=== PATIENT | male | born 1955 | race Hispanic/Latino ===

== ENCOUNTER 2018-10-23 21:22 | Emergency (ER) | payer MEDICARE ==
[2018-10-23] MEDS ORDERED: BABY ASPIRIN PO ONE (21:47)
--- NOTE | 2018-10-23 21:52 | Emergency Department Report ---
ED Chest Pain HPI - General Stated Complaint: CP Time Seen by Provider: 10/23/18 21:36 - History of Present Illness Initial Comments: Patient is 63 years old male with history of coronary artery disease status post stent one in 1998 and the last one was in 2006. Patient also had history of hypertension and diabetes. Patient presented to the ER complaining of chest tightness started this evening while he was working on his truck. Patient stated that pain radiated to his jaw and neck. Patient stated that his pain is much better now but he is not feeling well since then. Patient denied any fever or cough. No nausea or vomiting. MD Complaint: chest pain -: This evening Onset: during exertion Pain Location: left chest Severity scale (0 -10): 6 Quality: tightness Consistency: intermittent - Related Data Home Medications Medication Instructions Recorded Confirmed Last Taken Aspirin [Aspirin BABY CHEW TAB] 81 mg PO QDAY 10/23/18 10/23/18 Unknown Clopidogrel Bisulfate [Plavix] 75 mg PO QPM 10/23/18 10/23/18 Unknown Docusate Sodium [Colace] 200 mg PO TIDWM 10/23/18 10/23/18 Unknown Insulin Aspart Prot/Aspart(Nf) 80 units SQ TID 10/23/18 10/23/18 Unknown [Novolog Mix 70/30] Lansoprazole [Prevacid] 15 mg PO QDAY 10/23/18 10/23/18 Unknown Lisinopril [Prinivil] 10 mg PO QAM 10/23/18 10/23/18 Unknown Allergies Allergy/AdvReac Type Severity Reaction Status Date / Time Sulfa (Sulfonamide Allergy Unknown Verified 10/23/18 22:06 Antibiotics) Heart Score - HEART Score History: Moderately suspicious EKG: Non-specific Age: 45-65 Risk factors: > 3 risk factors or hx of atherosclerotic disease Troponin: < normal limit HEART Score: 5 - Critical Actions Critical Actions: 4-6 pts:12-16.6% risk of adverse cardiac event. Should be admitted ED Review of Systems ROS: Stated complaint: CP Other details as noted in HPI Comment: All other systems reviewed and negative Constitutional: denies: chills, fever Respiratory: SOB with exertion. denies: cough, orthopnea, shortness of breath, SOB at rest Cardiovascular: chest pain Gastrointestinal: denies: abdominal pain, nausea, vomiting, diarrhea, constipation, hematemesis, melena Neurological: denies: headache, weakness, numbness, paresthesias, confusion, abnormal gait, vertigo ED Past Medical Hx - Medications Home Medications: Home Medications Medication Instructions Recorded Confirmed Last Taken Type Aspirin [Aspirin BABY CHEW TAB] 81 mg PO QDAY 10/23/18 10/23/18 Unknown History Clopidogrel Bisulfate [Plavix] 75 mg PO QPM 10/23/18 10/23/18 Unknown History Docusate Sodium [Colace] 200 mg PO TIDWM 10/23/18 10/23/18 Unknown History Insulin Aspart Prot/Aspart(Nf) 80 units SQ TID 10/23/18 10/23/18 Unknown History [Novolog Mix 70/30] Lansoprazole [Prevacid] 15 mg PO QDAY 10/23/18 10/23/18 Unknown History Lisinopril [Prinivil] 10 mg PO QAM 10/23/18 10/23/18 Unknown History ED Physical Exam - General General appearance: alert, in no apparent distress - Head Head exam: Present: atraumatic, normocephalic, normal inspection - Eye Eye exam: Present: normal appearance - ENT ENT exam: Present: normal exam, normal orophraynx, mucous membranes moist - Neck Neck exam: Present: normal inspection, full ROM. Absent: tenderness, meningismus, lymphadenopathy, thyromegaly - Respiratory Respiratory exam: Present: normal lung sounds bilaterally. Absent: respiratory distress, wheezes, rales, rhonchi, stridor, chest wall tenderness, accessory muscle use, decreased breath sounds, prolonged expiratory - Cardiovascular Cardiovascular Exam: Present: regular rate, normal rhythm, normal heart sounds - GI/Abdominal GI/Abdominal exam: Present: soft, normal bowel sounds. Absent: distended, tenderness, guarding, rebound, rigid, organomegaly, mass, bruit, pulsatile mass - Extremities Exam Extremities exam: Present: normal inspection, full ROM, normal capillary refill. Absent: pedal edema, calf tenderness - Back Exam Back exam: Present: normal inspection, full ROM. Absent: tenderness, CVA te nderness (R), CVA tenderness (L), muscle spasm, paraspinal tenderness, vertebral tenderness - Neurological Exam Neurological exam: Present: alert, oriented X3, CN II-XII intact, normal gait, reflexes normal - Psychiatric Psychiatric exam: Present: normal mood - Skin Skin exam: Present: warm, intact, normal color ED Course Vital Signs 10/23/18 10/23/18 10/23/18 21:30 21:46 22:27 Temperature 97.9 F Pulse Rate 106 H 97 H Respiratory 23 21 18 Rate Blood Pressure 131/87 175/73 O2 Sat by Pulse 96 94 95 Oximetry 10/23/18 10/23/18 10/24/18 22:30 23:00 00:00 Temperature Pulse Rate 93 H 91 H 97 H Respiratory 14 19 15 Rate Blood Pressure 177/86 125/57 168/72 O2 Sat by Pulse 95 91 97 Oximetry 10/24/18 01:00 Temperature Pulse Rate 90 Respiratory 13 Rate Blood Pressure 143/63 O2 Sat by Pulse 96 Oximetry - Consultations Consultation #1: 10/24/18 01:11 I discussed the patient is Dr. Douglas from [facility]. YIFAN score - Yifan Score Age > 65: (0) No Aspirin use within the Past 7 Days: (1) Yes 3 or more CAD Risk Factors: (1) Yes 2 or more Angina events in past 24 hrs: (1) Yes Known CAD with more than 50% Stenosis: (1) Yes Elevated Cardiac Markers: (0) No ST Deviation Greater than 0.5mm: (0) No YIFAN Score: 4 ED Medical Decision Making - Lab Data Result diagrams: 10/23/18 21:53 10/23/18 21:53 - EKG Data -: EKG Interpreted by Ar EKG shows normal: sinus rhythm Rate: normal - EKG Data Interpretation: no acute changes - Radiology Data Radiology results: report reviewed Referring Physician: LIBRA KIRBY Patient Name: KOREY FOSTER Date of : 1955 Sex: Male Report Date: 2018-10-23 Report Status: Finalized Findings [facility] [address] [place] [address] Cat Scan Report Signed Patient: KOREY FOSTER MR#: [id number] : 1955 Acct:[id number] Age/Sex: 63 / M ADM Date: 10/23/18 Loc: ED Attending Dr: Ordering Physician: LIBAR KIRBY Date of Service: 10/23/18 Procedure(s): CT angio chest Accession Number(s): [id number] cc: LIBRA KIRBY PROCEDURE: CT ANGIO CHEST TECHNIQUE: A CT angiogram was performed following the intravenous injection of iodinated contrast. Rotational, sagittal, and coronal MIP reconstructions were reviewed. HISTORY: CHEST PAIN WITH elevated d-dimer COMPARISONS: Chest x-ray 10/23/2018 FINDINGS: The heart size is normal. There is no evidence of pericardial effusion. The thoracic aorta is normal in caliber. There is no evidence of pulmonary embolus or vascular congestion. The lungs reveal emphysematous changes in the apices. In the anterior segment of the right upper lobe there is a noncalcified ovoid 8 mm nodule. No additional suspicious nodules are identified. Pleural fluid is not seen. In the upper abdomen the adrenal glands appear normal. The skeletal structures do not show any acute changes. At the thoracic inlet the thyroid gland appears normal. IMPRESSION: No evidence of pulmonary embolus, aortic dissection, or vascular congestion. Emphysematous changes in both lung apices. No acute infiltrates or effusions. 8 mm low-density noncalcified nodule in the right upper lobe. If previous studies are available they should be submitted for comparison. Otherwise repeat imaging in 3-6 months is recommended to confirm stability.. This document is electronically signed by Neymar Fernandez MD., October 24 2018 01:26:24 AM ET Transcribed By: RB Dictated By: NEYMAR FERNNADEZ MD Electronically Authenticated By: NEYMAR FERNANDEZ MD Signed Date/Time: 10/24/18 0128 DD/ 2256 TD/TT: 10/24/18 0019 - Medical Decision Making Patient is 63 years old male with history of coronary artery disease status post stent one in 1998 and the last one was in 2006. Patient also had history of hypertension and diabetes. Patient presented to the ER complaining of chest tightness started this evening while he was working on his truck. Patient stated that pain radiated to his jaw and neck. Patient stated that his pain is much better now but he is not feeling well since then. Patient denied any fever or cough. No nausea or vomiting. EKG was no evidence of ST elevation. 2 set of troponin is negative so far. CTA chest is negative. I discussed the patient is Dr. Douglas from [facility] who stated that he arranged for the transfer to [facility], accepting physician is Dr. Ortiz. Dr. Douglas to stated that he will arrange for the transfer. Critical Care Time: Yes Critical care time in (mins) excluding proc time.: 30 Critical care attestation.: If time is entered above; I have spent that time in minutes in the direct care of this critically ill patient, excluding procedure time. ED Disposition Clinical Impression: Unstable angina Disposition: DC/TX-70 ANOTHER TYPE HLTHCARE Is pt being admited?: No Condition: Stable Instructions: Angina (ED) Referrals: PRIMARY CARE, [Primary Care Provider] - 3-5 Days
[2018-10-23 22:10] LABS: Basophils % (Auto) 0.2 % (0.0-1.8); Eosinophils # (Auto) 0.2 K/mm3 (0.0-0.4); Eosinophils % (Auto) 3.3 % (0.0-4.3); Hemoglobin 12.6 gm/dl (11.8-15.2); Lymphocytes % (Auto) 17.8 % (13.4-35.0); Mean Corpuscular HGB Conc 33 % (32-34); Mean Corpuscular Volume 81 fl (84-94); Monocytes # (Auto) 0.6 K/mm3 (0.0-0.8); Monocytes % (Auto) 9.8 % (0.0-7.3); Platelet Count 132 K/mm3 (140-440); Red Blood Count 4.69 M/mm3 (3.65-5.03); Red Cell Distribution Width 15.8 % (13.2-15.2)
[2018-10-23 22:23] LABS: INR 0.95 (0.87-1.13); Partial Thromboplastin Time 26.4 Sec. (24.2-36.6)
[2018-10-23 22:29] LABS: BUN/Creatinine Ratio 10; Blood Urea Nitrogen 7 mg/dL (9-20); Calcium 8.9 mg/dL (8.4-10.2); Hemolysis Index 20
--- NOTE | 2018-10-23 23:27 | XRay Report ---
PROCEDURE: Chest. TECHNIQUE: PA and lateral views. HISTORY: Chest pain. COMPARISONS: None. FINDINGS: The heart size is normal. There is mild tortuosity of the thoracic aorta. The lungs are clear except for previous granulomatous disease. There may be mild hyperinflation of the lungs. There are no pleur al effusions. The soft tissues and regional skeleton are unremarkable. IMPRESSION: No evidence of acute disease. This document is electronically signed by Larry Santamaria MD., October 23 2018 11:25:52 PM ET
--- NOTE | 2018-10-24 01:28 | Cat Scan Report ---
PROCEDURE: CT ANGIO CHEST TECHNIQUE: A CT angiogram was performed following the intravenous injection of iodinated contrast. R otational, sagittal, and coronal MIP reconstructions were reviewed. HISTORY: CHEST PAIN WITH elevated d-dimer COMPARISONS: Chest x-ray 10/23/2018 FINDINGS: The heart size is normal. There is no evidence of pericardial effusion. The thoracic aorta is normal in caliber. There is no evidence of pulmonary embolus or vascular congestion. The lungs reveal emphys ematous changes in the apices. In the anterior segment of the right upper lobe there is a noncalcifie d ovoid 8 mm nodule. No additional suspicious nodules are identified. Pleural fluid is not seen. In t he upper abdomen the adrenal glands appear normal. The skeletal structures do not show any acute monsivais ges. At the thoracic inlet the thyroid gland appears normal. IMPRESSION: No evidence of pulmonary embolus, aortic dissection, or vascular congestion. Emphysematous changes in both lung apices. No acute infiltrates or effusions. 8 mm low-density noncalcified nodule in the right upper lobe. If previous studies are available they should be submitted for comparison. Otherwise repeat imaging in 3-6 months is recommended to confirm stability.. This document is electronically signed by Qasim Fernandez MD., October 24 2018 01:26:24 AM ET
[2018-10-24 19:47] VITALS: BP 143/63
== END 2018-10-24 02:58 | disposition other institution (70) ==
LOC: ED 21:22
DX: I20.0 Unstable angina (principal); I10 Essential (primary) hypertension; E11.9 Type 2 diabetes mellitus without complications; Z88.2 Allergy status to sulfonamides; Z79.82 Long term (current) use of aspirin; Z79.4 Long term (current) use of insulin
CPT/HCPCS: 36415; 71046; 71275; 80048; 84484; 85025; 85379; 85610; 85730; 93005; 93010; 99285; Q9967

== ENCOUNTER 2021-04-10 03:52 | Inpatient (IN) | payer MEDICARE ==
[2021-04-10] MEDS ORDERED: dilTIAZem 25 MG/5 ML INJ ONE (04:05)
[2021-04-10] MEDS ORDERED: dilTIAZem 25 MG/5 ML INJ IV ONE (04:06)
--- NOTE | 2021-04-10 04:10 | Emergency Department Report ---
ED Chest Pain HPI - General Chief Complaint: Chest Pain Stated Complaint: CHEST PAIN PUI?: Yes Time Seen by Provider: 04/10/21 04:05 Source: patient, EMS Mode of arrival: Stretcher Limitations: No Limitations - History of Present Illness Initial Comments: Patient is a 65-year-old male who presents emergency room for chest pain. Patient states chest pain started approximately an hour ago. Patient states that his chest pain has improved. Patient states his chest pain was the worst she is ever felt. Patient states it was 10 of 10. Patient states is a crushing sharp chest pain in the center of his chest. Patient complains of shortness of breath. Patient states shortness of breath has resolved. Patient states his chest pain now is a 4 out of 10. Pain feels like more like a pressure. Patient brought in by EMS. He reports he can EMS. EMS states the patient was found to be tachycardic 182 on EKG. Patient was given adenosine the patient is now 120. EKGs from EMS were reviewed. Patient denies recent travel. Patient denies recent international travel. Patient denies exposure to the novel coronavirus. Patient denies sick contacts. Patient denies fever and chills. Patient denies cough. Patient denies d iarrhea. Patient denies coming in contact with anybody with symptoms of the novel coronavirus. MD Complaint: chest pain -: Sudden Pain Location: substernal Pain Radiation: none Severity scale (0 -10): 4 Quality: sharp Consistency: constant Improves With: rest Worsens With: exertion re: dyspnea. denies: nausea, vomting, diaphoresis Other Symptoms: palpitations. denies: cough, fever, syncope, rash, acid taste in mouth, leg swelling, burping Treatments Prior to Arrival: aspirin, other Aspirin use within the Past 7 Days: (1) Yes - Related Data On Oral Contraceptives: No Home Medications Medication Instructions Recorded Confirmed Last Taken Aspirin [Aspirin BABY CHEW TAB] 81 mg PO QDAY 10/23/18 10/23/18 Unknown Clopidogrel Bisulfate [Plavix] 75 mg PO QPM 10/23/18 10/23/18 Unknown Docusate Sodium [Colace] 200 mg PO TIDWM 10/23/18 10/23/18 Unknown Insulin Aspart Prot/Aspart(Nf) 80 units SQ TID 10/23/18 10/23/18 Unknown [Novolog Mix 70/30] Lansoprazole [Prevacid] 15 mg PO QDAY 10/23/18 10/23/18 Unknown lisinopriL [Prinivil] 10 mg PO QAM 10/23/18 10/23/18 Unknown Allergies Allergy/AdvReac Type Severity Reaction Status Date / Time Sulfa (Sulfonamide Allergy Unknown Verified 04/10/21 04:15 Antibiotics) Heart Score - HEART Score History: Highly suspicious EKG: Non-specific Age: > 65 Risk factors: > 3 risk factors or hx of atherosclerotic disease Troponin: < normal limit HEART Score: 7 - EKG Read Time Time EKG Completed: 04:01 EKG Read Time: 04:02 ED Review of Systems ROS: Stated complaint: CHEST PAIN Other details as noted in HPI Constitutional: denies: chills, fever Eyes: denies: eye pain, eye discharge, vision change ENT: denies: ear pain, throat pain Respiratory: shortness of breath. denies: cough, wheezing Cardiovascular: as per HPI, chest pain, palpitations Endocrine: no symptoms reported Gastrointestinal: denies: abdominal pain, nausea, diarrhea Genitourinary: denies: urgency, dysuria Musculoskeletal: denies: back pain, joint swelling, arthralgia Skin: denies: rash, lesions Neurological: denies: headache, weakness, paresthesias Psychiatric: denies: anxiety, depression Hematological/Lymphatic: denies: easy bleeding, easy bruising ED Past Medical Hx - Past Medical History Previous Medical History?: Yes Hx Hypertension: Yes Hx Heart Attack/AMI: Yes (2 stent) Hx Asthma: Yes Hx COPD: Yes Additional medical history: gastric ulcer - Surgical History Past Surgical History?: Yes Hx Cholecystectomy: Yes Additional Surgical History: hernia repair - Family History Family history: no significant - Social History Smoking Status: Never Smoker Substance Use Type: None - Medications Home Medications: Home Medications Medication Instructions Recorded Confirmed Last Taken Type Aspirin [Aspirin BABY CHEW TAB] 81 mg PO QDAY 10/23/18 10/23/18 Unknown History Clopidogrel Bisulfate [Plavix] 75 mg PO QPM 10/23/18 10/23/18 Unknown History Docusate Sodium [Colace] 200 mg PO TIDWM 10/23/18 10/23/18 Unknown History Insulin Aspart Prot/Aspart(Nf) 80 units SQ TID 04/15/19 04/15/19 Unknown History [Novolog Mix 70/30] Lansoprazole [Prevacid] 15 mg PO QDAY 10/23/18 10/23/18 Unknown History lisinopriL [Prinivil] 10 mg PO QAM 10/23/18 10/23/18 Unknown History ED Physical Exam - General Limitations: No Limitations General appearance: alert, in no apparent distress - Head Head exam: Present: atraumatic, normocephalic - Eye Eye exam: Present: normal appearance - ENT ENT exam: Present: mucous membranes moist - Neck Neck exam: Present: normal inspection - Respiratory Respiratory exam: Present: normal lung sounds bilaterally. Absent: respiratory distress - Cardiovascular Cardiovascular Exam: Present: regular rate, normal rhythm. Absent: systolic murmur, diastolic murmur, rubs, gallop - GI/Abdominal GI/Abdominal exam: Present: soft, normal bowel sounds - Rectal Rectal exam: Present: deferred - Extremities Exam Extremities exam: Present: normal inspection - Back Exam Back exam: Present: normal inspection - Neurological Exam Neurological exam: Present: alert, oriented X3 - Psychiatric Psychiatric exam: Present: normal affect, normal mood - Skin Skin exam: Present: warm, dry, intact, normal color. Absent: rash ED Course Vital Signs 04/10/21 04/10/21 04/10/21 04:03 04:10 04:27 Temperature 97.8 F Pulse Rate 116 H 132 H 115 H Respiratory 15 18 Rate Blood Pressure 182/89 167/86 O2 Sat by Pulse 94 96 Oximetry 04/10/21 04/10/21 04/10/21 04:30 04:46 05:00 Temperature Pulse Rate 112 H 109 H 109 H Respiratory 12 12 12 Rate Blood Pressure 155/71 159/71 137/67 O2 Sat by Pulse 95 96 95 Oximetry - Reevaluation(s) Reevaluation #1: I observed an irregular rhythm on the EKG and the patient will be given Cardizem push and placed on a Cardizem drip. I personally reviewed the rhythm strip for greater than 10 seconds. 04/10/21 04:10 Reevaluation #2: Patient states feeling much better. Patient states his pain has now resolved. 04/10/21 04:45 Reevaluation #3: Patient states his pain is completely resolved at this time. Patient states he is feeling much better. Patient's heart rate is 100. Patient is currently on Cardizem drip. 04/10/21 05:25 Reevaluation #4: I discussed all results with patient. I discussed plan of care with patient. Patient agrees with plan of care and admission. Patient to be admitted to the hospitalist service. 04/10/21 06:01 - Consultations Consultation #1: I discussed the case with Dr. Leggett, accounts receivable supervisor. Dr. Leggett states this is not a STEMI and the patient can be managed medically. 04/10/21 04:17 Consultation #2: Patient has [facility] insurance. [facility] on-call physician was paged. 04/10/21 05:25 I discussed the case with Dr. Pool with [facility] and recommends admission here. 04/10/21 06:00 Consultation #3: Hospitalist consulted for admission. Hospitalist to admit patient. 04/10/21 06:01 MARITA score - Marita Score Age > 65: (0) No Aspirin use within the Past 7 Days: (1) Yes 3 or more CAD Risk Factors: (1) Yes 2 or more Angina events in past 24 hrs: (1) Yes Known CAD with more than 50% Stenosis: (1) Yes Elevated Cardiac Markers: (0) No ST Deviation Greater than 0.5mm: (0) No MARITA Score: 4 ED Medical Decision Making - Lab Data Result diagrams: 04/10/21 04:22 04/10/21 04:22 - EKG Data -: EKG Interpreted by Me EKG shows normal: sinus rhythm, axis, intervals, ST-T waves Rate: tachycardia - Radiology Data Radiology results: report reviewed, image reviewed interpreted by me: Chest x-ray: No pneumonia, no pneumothorax, no foreign body, no osseous findings, no acute findings CHEST 1 VIEW INDICATION / CLINICAL INFORMATION: Chest Pain STUDY TIME: 409 COMPARISON: 10/23/2018 FINDINGS: SUPPORT DEVICES: None HEART / MEDIASTINUM: No significant abnormality. LUNGS / PLEURA: Detail in the bases is reduced due to the patient's size. No definite acute infiltrate is seen. No pneumothorax. ADDITIONAL FINDINGS: No significant additional findings. - Medical Decision Making Patient is a 65-year-old male who presents emergency room with complaints of chest pain. Patient brought in by EMS. Report received from EMS on arrival. EMS found the patient to be in A. fib RVR with a heart rate of 182 and irregular. Patient was given adenosine and his heart rate improved. Patient was found to have an irregular rhythm and rate when he arrived patient was given Cardizem and placed on Cardizem. Patient had an EKG which showed a right bundle branch block with abnormal STs. I discussed the EKG with our accounts receivable supervisor and he stated it was not a STEMI. Patient's rhythm and heart rate improved with Cardizem. Patient had labs done which were essentially unremarkable. Patient's troponin was negative. Patient's chest x- ray was negative for acute findings. I personally reviewed the rhythm strip and chest x-ray and EKG. Patient is a [facility] patient and the [facility] was contacted and she wants the patient be admitted here due to the fact he is uninsured. Patient admitted to the hospital service for further evaluation treatment and into the ICU. Critical care time documented due to the multiple reassessments, prolonged time at the bedside, interpretation of diagnostics and labs. - Differential Diagnosis ACS, A. fib RVR, chest pain, shortness of breath, abnormal EKG Critical Care Time: Yes Critical care time in (mins) excluding proc time.: 35 Critical care attestation.: If time is entered above; I have spent that time in minutes in the direct care of this critically ill patient, excluding procedure time. Critical Care Time: 35 minutes ED Disposition Clinical Impression: Atrial fibrillation with RVR, Abnormal EKG, Shortness of breath Chest pain Qualifiers: Chest pain type: unspecified Qualified Code(s): R07.9 - Chest pain, unspecified Disposition: ADMITTED INPATIENT Is pt being admited?: Yes Does the pt Need Aspirin: No Condition: Critical Time of Disposition: 06:18
--- NOTE | 2021-04-10 04:40 | XRay Report ---
CHEST 1 VIEW INDICATION / CLINICAL INFORMATION: Chest Pain STUDY TIME: 409 COMPARISON: 10/23/2018 FINDINGS: SUPPORT DEVICES: None HEART / MEDIASTINUM: No significant abnormality. LUNGS / PLEURA: Detail in the bases is reduced due to the patient's size. No definite acute infiltrat e is seen. No pneumothorax. ADDITIONAL FINDINGS: No significant additional findings. Signer Name: Rachid Erickson MD Signed: 04/10/2021 4:36 AM Workstation Name: [id number]
[2021-04-10 04:45] LABS: Basophils % (Auto) 0.4 % (0.0-1.8); Eosinophils # (Auto) 0.1 K/mm3 (0.0-0.4); Eosinophils % (Auto) 4.3 % (0.0-4.3); Hematocrit 33.6 % (35.5-45.6); Hemoglobin 10.8 gm/dl (11.8-15.2); Lymphocytes # (Auto) 0.7 K/mm3 (1.2-5.4); Lymphocytes % (Auto) 19.9 % (13.4-35.0); Mean Corpuscular HGB Conc 32 % (32-34); Mean Corpuscular Volume 72 fl (84-94); Monocytes # (Auto) 0.4 K/mm3 (0.0-0.8); Monocytes % (Auto) 11.3 % (0.0-7.3); Platelet Count 132 K/mm3 (140-440); Red Blood Count 4.65 M/mm3 (3.65-5.03); Red Cell Distribution Width 17.7 % (13.2-15.2)
[2021-04-10 04:55] LABS: INR 1.02 (0.87-1.13)
[2021-04-10 04:56] LABS: Partial Thromboplastin Time 26.4 Sec. (24.2-36.6)
[2021-04-10] MEDS ORDERED: dilTIAZem/D5W 100 MG/100 ML BAG IV SCH (05:00)
[2021-04-10 05:06] LABS: Alanine Aminotransferase 19 units/L (7-56); Blood Urea Nitrogen 9 mg/dL (9-20); Calcium 9.2 mg/dL (8.4-10.2); Hemolysis Index 38
[2021-04-10 05:19] LABS: BUN/Creatinine Ratio 13
--- NOTE | 2021-04-10 08:27 | History and Physical Report ---
History of Present Illness Date of examination: 04/10/21 Chief complaint: Chest pain and palpitation History of present illness: 65-year-old male with significant past medical history of GERD, diabetes mellitus type 2 and hypertension presented through the emergency room with complaints of chest pain that began approximately 1 hour prior to admission. The patient described the pain as a crushing sharp chest pain of a pressure consistency in the center of his chest. Patient also reported associated shortness of breath and palpitations last night. Patient denied any nausea vomiting. No cough or cold-like symptoms. No fever chills. Patient denies any history of atrial fibrillation. Patient also reported an additional history of recent left patella fracture approximately 4 weeks ago. Patient noted left calf pain a couple of weeks ago associated with that fracture. Patient also reports some immobility during that time. Patient denies any hemoptysis. Past History Past Medical History: diabetes, GERD, hypertension Past Surgical History: No surgical history Social history: no significant social history Family history: no significant family history Medications and Allergies Allergies Allergy/AdvReac Type Severity Reaction Status Date / Time Sulfa (Sulfonamide Allergy Unknown Verified 04/10/21 04:15 Antibiotics) Home Medications Medication Instructions Recorded Confirmed Last Taken Type Aspirin [Aspirin BABY CHEW TAB] 81 mg PO QDAY 10/23/18 10/23/18 Unknown History Clopidogrel Bisulfate [Plavix] 75 mg PO QPM 10/23/18 10/23/18 Unknown History Docusate Sodium [Colace] 200 mg PO TIDWM 10/23/18 10/23/18 Unknown History Insulin Aspart Prot/Aspart(Nf) 80 units SQ TID 10/23/18 10/23/18 Unknown History [Novolog Mix 70/30] Lansoprazole [Prevacid] 15 mg PO QDAY 10/23/18 10/23/18 Unknown History lisinopriL [Prinivil] 10 mg PO QAM 10/23/18 10/23/18 Unknown History Active Meds: Active Medications Diltiazem HCl (Cardizem/D5w 100mg/100ml) 100 mg in 100 mls @ 5 mls/hr IV TITR JOELLE; Protocol Last Admin: 04/10/21 05:43 Dose: 5 mg/hr, 5 mls/hr Documented by: Review of Systems All systems: negative Exam - Constitutional Vitals: Temp Pulse Resp BP Pulse Ox 97.8 F 109 H 12 137/67 95 04/10/21 04:03 04/10/21 05:00 04/10/21 05:00 04/10/21 05:00 04/10/21 05:00 General appearance: Present: no acute distress, well-nourished - EENT Eyes: Present: PERRL ENT: hearing intact, clear oral mucosa - Neck Neck: Present: supple, normal ROM - Respiratory Respiratory effort: normal Respiratory: bilateral: CTA - Cardiovascular Heart Sounds: Present: S1 & S2. Absent: rub, click - Extremities Extremities: pulses symmetrical, No edema Peripheral Pulses: within normal limits - Abdominal General gastrointestinal: Present: soft, non-tender, non-distended, normal bowel sounds Male genitourinary: Present: normal - Integumentary Integumentary: Present: clear, warm, dry - Musculoskeletal Musculoskeletal: gait normal, strength equal bilaterally - Psychiatric Psychiatric: appropriate mood/affect, intact judgment & insight - Neurologic Neurologic: CNII-XII intact, moves all extremities HEART Score - HEART Score EKG: Non-specific Age: > 65 Risk factors: > 3 risk factors or hx of atherosclerotic disease Troponin: Troponin T < 0.010 ng/mL (0.00-0.029) 04/10/21 04:22 Troponin: < normal limit Results - Labs CBC & Chem 7: 04/10/21 04:22 04/10/21 04:22 Labs: Laboratory Last Values WBC 3.4 K/mm3 (4.5-11.0) L 04/10/21 04:22 RBC 4.65 M/mm3 (3.65-5.03) 04/10/21 04:22 Hgb 10.8 gm/dl (11.8-15.2) L 04/10/21 04:22 Hct 33.6 % (35.5-45.6) L 04/10/21 04:22 MCV 72 fl (84-94) L 04/10/21 04:22 MCH 23 pg (28-32) L 04/10/21 04:22 MCHC 32 % (32-34) 04/10/21 04:22 RDW 17.7 % (13.2-15.2) H 04/10/21 04:22 Plt Count 132 K/mm3 (140-440) L 04/10/21 04:22 Lymph % (Auto) 19.9 % (13.4-35.0) 04/10/21 04:22 [place] % (Auto) 11.3 % (0.0-7.3) H 04/10/21 04:22 Eos % (Auto) 4.3 % (0.0-4.3) 04/10/21 04:22 Baso % (Auto) 0.4 % (0.0-1.8) 04/10/21 04:22 Lymph # (Auto) 0.7 K/mm3 (1.2-5.4) L 04/10/21 04:22 [place] # (Auto) 0.4 K/mm3 (0.0-0.8) 04/10/21 04:22 Eos # (Auto) 0.1 K/mm3 (0.0-0.4) 04/10/21 04:22 Baso # (Auto) 0.0 K/mm3 (0.0-0.1) 04/10/21 04:22 Seg Neutrophils % 64.1 % (40.0-70.0) 04/10/21 04:22 Seg Neutrophils # 2.2 K/mm3 (1.8-7.7) 04/10/21 04:22 PT 13.9 Sec. (12.2-14.9) 04/10/21 04:22 INR 1.02 (0.87-1.13) 04/10/21 04:22 APTT 26.4 Sec. (24.2-36.6) 04/10/21 04:22 Sodium 135 mmol/L (137-145) L 04/10/21 04:22 Potassium 4.3 mmol/L (3.6-5.0) 04/10/21 04:22 Chloride 97.7 mmol/L (98-107) L 04/10/21 04:22 Carbon Dioxide 26 mmol/L (22-30) 04/10/21 04:22 Anion Gap 16 mmol/L 04/10/21 04:22 BUN 9 mg/dL (9-20) 04/10/21 04:22 Creatinine 0.7 mg/dL (0.8-1.3) L 04/10/21 04:22 Estimated GFR > 60 ml/min 04/10/21 04:22 BUN/Creatinine Ratio 13 % 04/10/21 04:22 Glucose 187 mg/dL (75-100) H 04/10/21 04:22 Calcium 9.2 mg/dL (8.4-10.2) 04/10/21 04:22 Total Bilirubin 0.50 mg/dL (0.1-1.2) 04/10/21 04:22 AST 32 units/L (5-40) 04/10/21 04:22 ALT 19 units/L (7-56) 04/10/21 04:22 Alkaline Phosphatase 102 units/L (35-129) 04/10/21 04:22 Troponin T < 0.010 ng/mL (0.00-0.029) 04/10/21 04:22 Total Protein 7.1 g/dL (6.3-8.2) 04/10/21 04:22 Albumin 4.0 g/dL (3.9-5) 04/10/21 04:22 Albumin/Globulin Ratio 1.3 % 04/10/21 04:22 Assessment and Plan Assessment and plan: Atrial fibrillation with RVR. Chest pain. Diabetes mellitus type 2. Hypertension. Recent left patellar fracture. GERD 04/10/2021. Patient will be admitted to telemetry and monitor closely. We will follow-up serial EKG and cardiac isoenzymes. Cardiology will be consulted for further evaluation. Patient has converted back to normal sinus rhythm after administration of Cardizem. We will transition to p.o. Cardizem 30 mg twice daily and metoprolol 25 mg twice daily. Patient will undergo stress test. I discussed the case with Dr. Leggett. Resume home insulin regimen and SSRI/Accu- Cheks. Continue home medication of lisinopril. Patient will also have echocardiogram. We will initiate heparin per protocol but defer any other anticoagulation decisions to cardiology. Check left lower extremity Doppler to rule out DVT. Consider CTA of the chest. Check D-dimer.
[2021-04-10] MEDS ORDERED: ACETAMINOPHEN 325 MG TAB PO PRN ×2 (08:48→10:00)
[2021-04-10] MEDS ORDERED: DEXTROSE 50% IN WATER (25GM) 50 ML SYRINGE IV PRN (10:00)
[2021-04-10] MEDS ORDERED: METOPROLOL TARTRATE 25 MG TAB PO SCH ×2 (10:00→14:36)
[2021-04-10] MEDS ORDERED: HEPARIN 10,000 UNITS/10 ML VIAL IV PRN ×2 (10:00→13:00)
[2021-04-10] MEDS ORDERED: traMADol 50 MG TAB PO PRN (10:00)
[2021-04-10] MEDS ORDERED: dilTIAZem 30 MG TAB PO SCH (10:00)
[2021-04-10] MEDS ORDERED: HEPARIN 10,000 UNITS/10 ML VIAL IV SCH (10:00)
[2021-04-10] MEDS ORDERED: LANSOPRAZOLE 15 MG PO SCH (10:00)
[2021-04-10] MEDS ORDERED: ONDANSETRON 4 MG/2 ML INJ IV PRN (10:00)
[2021-04-10] MEDS: ASPIRIN 81 MG TAB CHEW PO SCH (10:07)
[2021-04-10] MEDS: MORPHINE 4 MG/1 ML INJ IV PRN ×3 (10:30→21:06)
[2021-04-10 10:51] LABS: Eosinophils # (Auto) 0.1 K/mm3 (0.0-0.4); Eosinophils % (Auto) 2.6 % (0.0-4.3); Monocytes # (Auto) 0.4 K/mm3 (0.0-0.8); Monocytes % (Auto) 11.5 % (0.0-7.3)
[2021-04-10] MEDS ORDERED: REGADENOSON 0.4 MG/5 ML INJ IV ONE ×2 (10:59→11:37)
[2021-04-10] MEDS ORDERED: DOCUSATE SODIUM 100 MG CAP PO PRN (11:00)
[2021-04-10 11:02] LABS: INR 1.03 (0.87-1.13)
[2021-04-10 11:03] LABS: Partial Thromboplastin Time 22.6 Sec. (24.2-36.6)
[2021-04-10 11:10] LABS: BUN/Creatinine Ratio 17; Blood Urea Nitrogen 10 mg/dL (9-20)
[2021-04-10 11:11] LABS: Calcium 8.9 mg/dL (8.4-10.2)
[2021-04-10 11:22] LABS: Chol/HDL Ratio 2.56 %
[2021-04-10 11:23] LABS: Platelet Count 151 K/mm3 (140-440)
[2021-04-10 11:25] LABS: Basophils % (Auto) 0.8 % (0.0-1.8); Hematocrit 34.3 % (35.5-45.6); Hemoglobin 10.9 gm/dl (11.8-15.2); Lymphocytes # (Auto) 0.7 K/mm3 (1.2-5.4); Lymphocytes % (Auto) 18.2 % (13.4-35.0); Mean Corpuscular HGB Conc 32 % (32-34); Mean Corpuscular Volume 72 fl (84-94); Red Blood Count 4.75 M/mm3 (3.65-5.03); Red Cell Distribution Width 17.3 % (13.2-15.2)
[2021-04-10] MEDS ORDERED: DOCUSATE SODIUM 100 MG CAP PO SCH (12:00)
[2021-04-10] MEDS: PANTOPRAZOLE 40 MG TAB PO SCH (13:11)
[2021-04-10] MEDS: LISINOPRIL 10 MG TAB PO SCH (13:11)
[2021-04-10] MEDS: INSULIN NPH/REGULAR 70/30 INJ SUB-Q SCH ×2 (13:29→18:23)
[2021-04-10] MEDS ORDERED: NON-FORMULARY EACH (Insulin Aspart Prot/Aspart(Nf) 100 UNITS/ML Units) SQ SCH (14:00)
[2021-04-10] MEDS: INSULIN REGULAR, HUMAN 100 UNITS/1 ML SUB-Q SCH ×4 (15:20→22:14)
[2021-04-10] MEDS: HEPARIN/ 0.45% NACL DRIP 25,000 UNIT/500 ML BAG IV SCH (15:55)
--- NOTE | 2021-04-10 17:37 | Consultation ---
History of Present Illness Consult date: 04/10/21 Requesting physician: REN SNOW History of present illness: Patient is a 65y/o male with a pmhx of HTN, CAD s/p PCI x 3, DM, GERD that came to the ED for a complaint of chest pain which occurred around 3AM this morning. Patient reports waking up from sleep due to a crushing pain in the center of his chest. He rates the pain 10/10 annd associates the pain with SOB, palpitations, diaphoresis, and a rapid heart rate. He denies nausea or vomiting. Per documentation in Ed patient was found to be in SVT and givne adenosine with conversion to NSR.At time of interview patien was then on a Cardizem gtt and reports chest pain was now 2/10. Patient troponins increased from negative to 0.16. Cardiology is consulted for chest pain. Patient is previously unknown to our practice and reports being a [facility] patient. Past History Past Medical History: diabetes, GERD, hypertension Past Surgical History: No surgical history Social history: no significant social history Family history: no significant family history Medications and Allergies Allergies Allergy/AdvReac Type Severity Reaction Status Date / Time Sulfa (Sulfonamide Allergy Unknown Verified 04/10/21 04:15 Antibiotics) Home Medications Medication Instructions Recorded Confirmed Last Taken Type Aspirin [Aspirin BABY CHEW TAB] 81 mg PO QDAY 10/23/18 10/23/18 Unknown History Clopidogrel Bisulfate [Plavix] 75 mg PO QPM 10/23/18 10/23/18 Unknown History Docusate Sodium [Colace] 200 mg PO TIDWM 10/23/18 10/23/18 Unknown History Insulin Aspart Prot/Aspart(Nf) 80 units SQ TID 10/23/18 10/23/18 Unknown History [Novolog Mix 70/30] Lansoprazole [Prevacid] 15 mg PO QDAY 10/23/18 10/23/18 Unknown History lisinopriL [Prinivil] 10 mg PO QAM 10/23/18 10/23/18 Unknown History Active Meds: Active Medications Acetaminophen (Acetaminophen 325 Mg Tab) 650 mg PO Q4H PRN PRN Reason: Pain MILD(1-3)/Fever >100.5/BYNUM Aspirin (Aspirin 81 Mg Tab Chew) 81 mg PO QDAY JOELLE Last Admin: 04/10/21 10:07 Dose: 81 mg Documented by: Clopidogrel Bisulfate (Clopidogrel 75 Mg Tab) 75 mg PO QPM [facility] Dextrose (Dextrose 50% In Water (25gm) 50 Ml Syringe) 50 ml IV Q30MIN PRN; Protocol PRN Reason: Hypoglycemia Docusate Sodium (Docusate Sodium 100 Mg Cap) 200 mg PO BID PRN PRN Reason: Constipation Heparin Sodium (Porcine) (Heparin 10,000 Units/10 Ml Vial) 5,000 unit IV Q6H PRN PRN Reason: Anti-Xa Assay < 0.1 units/ml Last Admin: 04/10/21 15:58 Dose: 5,000 unit Documented by: Heparin Sodium/Sodium Chloride (Heparin/ 0.45% Nacl-25,000 Unit/500 Ml) 25,000 unit in 500 mls @ 30 mls/hr IV TITR [facility]; Protocol Stop: 04/13/21 04:30 Last Admin: 04/10/21 15:55 Dose: 1,500 units/hr, 30 mls/hr Documented by: Sodium Chloride (Nacl 0.9% 500 Ml) 500 mls @ 50 mls/hr IV DIRECT OJELLE Stop: 04/11/21 03:59 Insulin Human Isoph/Insulin Regular (Insulin Nph/Regular 70/30 Inj) 60 unit SUB-Q 0800,1200,1700 [facility] Last Admin: 04/10/21 13:29 Dose: 60 unit Documented by: Insulin Human Regular (Insulin Regular, Human 100 Units/1 Ml) 0 units SUB-Q ACHS [facility]; Protocol Lisinopril (Lisinopril 10 Mg Tab) 10 mg PO QAM [facility] Last Admin: 04/10/21 13:11 Dose: 10 mg Documented by: Metoprolol Tartrate (Metoprolol Tartrate 25 Mg Tab) 50 mg PO BID [facility] Morphine Sulfate (Morphine 4 Mg/1 Ml Inj) 1 mg IV Q4H PRN PRN Reason: Chest Pain unrelieved by NTG Last Admin: 04/10/21 16:36 Dose: 1 mg Documented by: Ondansetron HCl (Ondansetron 4 Mg/2 Ml Inj) 4 mg IV Q8H PRN PRN Reason: Nausea And Vomiting Last Admin: 04/10/21 16:36 Dose: 4 mg Documented by: Pantoprazole Sodium (Pantoprazole 40 Mg Tab) 40 mg PO QDAC [facility] Last Admin: 04/10/21 13:11 Dose: 40 mg Documented by: Sodium Chloride (Sodium Chloride 0.9% 10 Ml Flush Syringe) 10 ml IV PRN PRN PRN Reason: LINE FLUSH Sodium Chloride (Sodium Chloride 0.9% 10 Ml Flush Syringe) 10 ml IV BID JOELLE Last Admin: 04/10/21 10:35 Dose: 10 ml Documented by: Sodium Chloride (Sodium Chloride 0.9% 10 Ml Flush Syringe) 10 ml IV PRN PRN PRN Reason: LINE FLUSH Tramadol HCl (Tramadol 50 Mg Tab) 50 mg PO Q6H PRN PRN Reason: Pain, Moderate (4-6) Last Admin: 04/10/21 16:37 Dose: 50 mg Documented by: Review of Systems Constitutional: sweats, no weight loss, no weight gain, no fever, no chills Ears, nose, mouth and throat: no nasal discharge, no sinus pressure, no sinus pain Cardiovascular: chest pain, palpitations, shortness of breath Respiratory: shortness of breath, no cough with sputum, no excessive sputum, no hemoptysis Gastrointestinal: no nausea, no vomiting, no diarrhea Musculoskeletal: no arm numbness/tingling, no low back pain, no shooting leg pain Integumentary: no rash, no pruritis, no redness Neurological: no paralysis, no weakness, no parathesias Psychiatric: no anxiety, no memory loss Endocrine: no cold intolerance, no heat intolerance Hematologic/Lymphatic: no easy bruising, no easy bleeding Physical Examination Vital Signs Temp Pulse Resp BP Pulse Ox 97.8 F 116 H 15 182/89 94 04/10/21 04:03 04/10/21 04:03 04/10/21 04:03 04/10/21 04:03 04/10/21 04:03 General appearance: no acute distress HEENT: Positive: PERRL Neck: Positive: trachea midline Cardiac: Positive: Reg Rate and Rhythm Lungs: Positive: Normal Exam Neuro: Positive: Grossly Intact Abdomen: Positive: Soft, Active Bowel Sounds Skin: Negative: Rash, Suspicious Lesions, Ulceration Extremities: Present: upper extr. pulses, lower extr. pulses. Absent: edema Results 04/10/21 10:11 04/10/21 10:11 Cardiac Enzymes 04/10/21 Range/Units 04:22 AST 32 (5-40) units/L Coagulation 04/10/21 04/10/21 Range/Units 04:22 10:11 PT 13.9 14.0 (12.2-14.9) Sec. INR 1.02 1.03 (0.87-1.13) APTT 26.4 22.6 L (24.2-36.6) Sec. Lipids 04/10/21 Range/Units 10:11 Triglycerides 75 (2-149) mg/dL Cholesterol 164 (50-199) mg/dL HDL Cholesterol 64 H (40-59) mg/dL Cholesterol/HDL Ratio 2.56 % CBC 04/10/21 04/10/21 Range/Units 04:22 10:11 WBC 3.4 L 3.8 L (4.5-11.0) K/mm3 RBC 4.65 4.75 (3.65-5.03) M/mm3 Hgb 10.8 L 10.9 L (11.8-15.2) gm/dl Hct 33.6 L 34.3 L (35.5-45.6) % Plt Count 132 L 151 (140-440) K/mm3 Lymph # (Auto) 0.7 L 0.7 L (1.2-5.4) K/mm3 [place] # (Auto) 0.4 0.4 (0.0-0.8) K/mm3 Eos # (Auto) 0.1 0.1 (0.0-0.4) K/mm3 Baso # (Auto) 0.0 0.0 (0.0-0.1) K/mm3 Comprehensive Metabolic Panel 04/10/21 04/10/21 Range/Units 04:22 10:11 Sodium 135 L 132 L (137-145) mmol/L Potassium 4.3 5.5 H D (3.6-5.0) mmol/L Chloride 97.7 L 98.4 (98-107) mmol/L Carbon Dioxide 26 24 (22-30) mmol/L BUN 9 10 (9-20) mg/dL Creatinine 0.7 L 0.6 L (0.8-1.3) mg/dL Glucose 187 H 255 H (75-100) mg/dL Calcium 9.2 8.9 (8.4-10.2) mg/dL AST 32 (5-40) units/L ALT 19 (7-56) units/L Alkaline Phosphatase 102 (35-129) units/L Total Protein 7.1 (6.3-8.2) g/dL Albumin 4.0 (3.9-5) g/dL - Imaging and Cardiology Echo: report reviewed Cardiac cath: report reviewed EKG: report reviewed EKG interpretations - Telemetry EKG Rhythm: Sinus Tachycardia - EKG Sinus rhythms and dysrhythmias: sinus tachycardia AV and intraventricular conduction: right bundle branch block Assessment and Plan NSTEMI HTN * EKG shows sinus tach 120 with RBB and no acute ischemic changes. Troponins trending up. Trend Rebecca * Echo EF 55-60%, Mild LVH, Mild diastolic dysfunction, left and right atrium are normal in size * Lexiscan MPI Stress test- Patient had abnormal stress test this AM * [facility] - LM widely patent, bifurcates into LAD and Circumflex LAD: mild disease, and givess of a larger 1st diagonal. The first diagonal is bigger than LAD and has a 70% stenosis. Circumflex: Proximal and mid is widely patent. There appears to be a stent in the mid Cx that is patent. Gives off very small 1st om that has diffuse disease. The Distal Cx gives off small OM and the distal system has diffuse 70% stenosis. The vessels here are small not ideal for revascularization. RCA: Dominant with moderate distal disease, otherwise patent. Plan: Patient for [facility] on Tuesday. Continue heparin gtt. Stopped diltiazem and initiate metoprolol 50mg PO BID Patient seen in conjunction with Dr. Antony who agrees with this plan of care. Will continue to follow - Patient Problems (1) NSTEMI (non-ST elevated myocardial infarction) Current Visit: Yes Status: Acute (2) Abnormal EKG Current Visit: No Status: Acute (3) Atrial fibrillation with RVR Current Visit: No Status: Acute (4) Chest pain Current Visit: No Status: Acute Qualifiers: Chest pain type: unspecified Qualified Code(s): R07.9 - Chest pain, unspecified (5) Shortness of breath Current Visit: No Status: Acute
--- NOTE | 2021-04-10 17:59 | Nuclear Medicine Report ---
APPROVED REPORT Exam: Nuclear Stress Test Indication: Chest pain Ht: 5 ft 10 in Wt: 320 lbs BSA: 2.55 m2 BMI: 45.91 Rhythm: NSR, RBBB Stress Test Details Stress Test: Pharmacologic stress testing performed using 0.4 mg of regadenoson per 5 mL given IV over 10 seconds. Reason for pharmacologic stress test: physical limitation. HR Resting HR: 82 bpm Max HR Achieved: 96 bpm Max Heart Rate (APMHR): 154 bpm Target HR (85% APMHR): 130 bpm % of APMHR: 62 Recovery HR: 86 bpm HR response to stress: Normal HR response to stress BP Resting BP: 145/60 mmHg Max BP: 158/65 mmHg Recovery BP: 148/61 mmHg BP response to stress: Normal blood pressure response to stress. ECG Resting ECG: Sinus Rhythm, RBBB Stress ECG: Sinus Rhythm, RBBB ST Change: None Arrhythmia: None Recovery ECG: Sinus Rhythm, RBBB Recovery ST Change: None Recovery Arrhythmia: None Clinical Reason for Termination: Completed protocol Stress Symptoms: None Stress ECG Conclusion No significant ST changes noted post vasodilation. NM EXAM: Myocardial Perfusion REST/STRESS Imaging Protocol: Rest Tc-99m/Stress Tc-99m 1 day Resting Data Rest SPECT myocardial perfusion imaging was performed in supine position 45 minutes following the intravenous injection of 10 mCi of Tc-99m Myoview. Time of rest injection: 1030 Pharmacologic Stress Pharmacologic stress test was performed by injecting Regadenoson 0.4 mg IV push followed by the intravenous injection of 28 mCi of Tc-99m Myoview. Time of stress injection: 1100 Gated Stress SPECT was performed 30 minutes after stress injection. Study Data TID = 1.25. Perfusion Wall Motion Normal LV function noted with LVEF of 59% post vasodilation. Nuclear Conclusion ECG Findings: negative for ischemia Clinical Findings: negative for ischemia Nuclear Findings: equivocal Exercise Capacity: not assessed Left Ventricular Function: normal Risk Study: moderate Abnormal study. Scintigraphic evidence for minimally reversible moderately severe inferior and inferolateral defect.Correlate clinically. Conclusion No significant ST changes noted post vasodilation.
[2021-04-10] MEDS ORDERED: SODIUM CHLORIDE 0.9% 500 ML 500 ML IV SCH (18:00)
[2021-04-10] MEDS: CLOPIDOGREL 75 MG TAB PO SCH (21:37)
[2021-04-11] MEDS: MORPHINE 4 MG/1 ML INJ IV PRN ×3 (04:04→18:48)
[2021-04-11] MEDS ORDERED: hydrALAZINE 20 MG/1 ML INJ IV ONE (05:15)
[2021-04-11] MEDS ORDERED: LISINOPRIL 10 MG TAB PO SCH (09:47)
[2021-04-11] MEDS ORDERED: METOPROLOL TARTRATE 25 MG TAB PO SCH (09:47)
[2021-04-11] MEDS: PANTOPRAZOLE 40 MG TAB PO SCH (09:56)
[2021-04-11] MEDS: LISINOPRIL 10 MG TAB PO SCH (09:56)
--- NOTE | 2021-04-11 09:56 | Progress Note ---
Assessment and Plan Assessment and plan: Atrial fibrillation with RVR. NSTEMI. Diabetes mellitus type 2. Hypertension. Recent left patellar fracture. GERD 04/10/2021. Patient will be admitted to telemetry and monitor closely. We will follow-up serial EKG and cardiac isoenzymes. Cardiology will be consulted for further evaluation. Patient has converted back to normal sinus rhythm after administration of Cardizem. We will transition to p.o. Cardizem 30 mg twice daily and metoprolol 25 mg twice daily. Patient will undergo stress test. I discussed the case with Dr. Leggett. Resume home insulin regimen and SSRI/Accu- Cheks. Continue home medication of lisinopril. Patient will also have echocardiogram. We will initiate heparin per protocol but defer any other anticoagulation decisions to cardiology. Check left lower extremity Doppler to rule out DVT. Consider CTA of the chest. Check D-dimer. 04/11/2021. Echocardiogram reveals left ventricular systolic function normal with mild concentric left ventricular hypertrophy and mild diastolic dysfunction. EF 55 to 60%. Cardiology reports NSTEMI with elevated troponin. Patient reportedly had abnormal stress test and is scheduled for cardiac catheterization on Tuesday. Continue heparin drip and metoprolol 50 mg twice daily. Cardiology following -[facility] - LM widely patent, bifurcates into LAD and Circumflex LAD: mild disease, and givess of a larger 1st diagonal. The first diagonal is bigger than LAD and has a 70% stenosis. Circumflex: Proximal and mid is widely patent. There appears to be a stent in the mid Cx that is patent. Gives off very small 1st om that has diffuse disease. The Distal Cx gives off small OM and the distal system has diffuse 70% stenosis. The vessels here are small not ideal for revascularization. RCA: Dominant with moderate distal disease, otherwise patent. History Interval history: No new issues overnight Hospitalist Physical - Constitutional Vitals: Temp Pulse Resp BP Pulse Ox 97.7 F 85 20 179/67 95 04/11/21 05:02 04/11/21 05:02 04/11/21 05:02 04/11/21 05:02 04/11/21 08:43 General appearance: Present: no acute distress - EENT Eyes: Present: PERRL, EOM intact ENT: hearing intact, clear oral mucosa, dentition normal - Neck Neck: Present: supple, normal ROM - Respiratory Respiratory effort: normal Respiratory: bilateral: CTA - Cardiovascular Rhythm: regular Heart Sounds: Present: S1 & S2. Absent: gallop, rub - Extremities Extremities: no ischemia, No edema, Full ROM - Abdominal General gastrointestinal: soft, non-tender, non-distended, normal bowel sounds - Integumentary Integumentary: Present: clear, warm, dry - Neurologic Neurologic: CNII-XII intact, moves all extremities HEART Score - HEART Score EKG: Non-specific Age: > 65 Risk factors: > 3 risk factors or hx of atherosclerotic disease Troponin: Troponin T 0.170 ng/mL (0.00-0.029) H* D 04/10/21 18:42 Troponin: < normal limit Results - Labs CBC & Chem 7: 04/10/21 10:11 04/10/21 10:11 Labs: Laboratory Last Values WBC 3.8 K/mm3 (4.5-11.0) L 04/10/21 10:11 RBC 4.75 M/mm3 (3.65-5.03) 04/10/21 10:11 Hgb 10.9 gm/dl (11.8-15.2) L 04/10/21 10:11 Hct 34.3 % (35.5-45.6) L 04/10/21 10:11 MCV 72 fl (84-94) L 04/10/21 10:11 MCH 23 pg (28-32) L 04/10/21 10:11 MCHC 32 % (32-34) 04/10/21 10:11 RDW 17.3 % (13.2-15.2) H 04/10/21 10:11 Plt Count 151 K/mm3 (140-440) 04/10/21 10:11 Lymph % (Auto) 18.2 % (13.4-35.0) 04/10/21 10:11 O'Brien % (Auto) 11.5 % (0.0-7.3) H 04/10/21 10:11 Eos % (Auto) 2.6 % (0.0-4.3) 04/10/21 10:11 Baso % (Auto) 0.8 % (0.0-1.8) 04/10/21 10:11 Lymph # (Auto) 0.7 K/mm3 (1.2-5.4) L 04/10/21 10:11 O'Brien # (Auto) 0.4 K/mm3 (0.0-0.8) 04/10/21 10:11 Eos # (Auto) 0.1 K/mm3 (0.0-0.4) 04/10/21 10:11 Baso # (Auto) 0.0 K/mm3 (0.0-0.1) 04/10/21 10:11 Seg Neutrophils % 66.9 % (40.0-70.0) 04/10/21 10:11 Seg Neutrophils # 2.5 K/mm3 (1.8-7.7) 04/10/21 10:11 PT 14.0 Sec. (12.2-14.9) 04/10/21 10:11 INR 1.03 (0.87-1.13) 04/10/21 10:11 APTT 22.6 Sec. (24.2-36.6) L 04/10/21 10:11 D-Dimer 468.71 ng/mlDDU (0-234) H 04/10/21 08:52 Heparin Anti-Xa Level < 0.10 U.I./ml (0.3-0.7) L 04/11/21 09:06 Sodium 132 mmol/L (137-145) L 04/10/21 10:11 Potassium 5.5 mmol/L (3.6-5.0) H D 04/10/21 10:11 Chloride 98.4 mmol/L (98-107) 04/10/21 10:11 Carbon Dioxide 24 mmol/L (22-30) 04/10/21 10:11 Anion Gap 15 mmol/L 04/10/21 10:11 BUN 10 mg/dL (9-20) 04/10/21 10:11 Creatinine 0.6 mg/dL (0.8-1.3) L 04/10/21 10:11 Estimated GFR > 60 ml/min 04/10/21 10:11 BUN/Creatinine Ratio 17 % 04/10/21 10:11 Glucose 255 mg/dL (75-100) H 04/10/21 10:11 POC Glucose 171 mg/dL (70-105) H 04/11/21 08:01 Calcium 8.9 mg/dL (8.4-10.2) 04/10/21 10:11 Total Bilirubin 0.50 mg/dL (0.1-1.2) 04/10/21 04:22 AST 32 units/L (5-40) 04/10/21 04:22 ALT 19 units/L (7-56) 04/10/21 04:22 Alkaline Phosphatase 102 units/L (35-129) 04/10/21 04:22 Troponin T 0.170 ng/mL (0.00-0.029) H* D 04/10/21 18:42 Total Protein 7.1 g/dL (6.3-8.2) 04/10/21 04:22 Albumin 4.0 g/dL (3.9-5) 04/10/21 04:22 Albumin/Globulin Ratio 1.3 % 04/10/21 04:22 Triglycerides 75 mg/dL (2-149) 04/10/21 10:11 Cholesterol 164 mg/dL (50-199) 04/10/21 10:11 LDL Cholesterol Direct 98 mg/dL (50-130) 04/10/21 10:11 HDL Cholesterol 64 mg/dL (40-59) H 04/10/21 10:11 Cholesterol/HDL Ratio 2.56 % 04/10/21 10:11 Martinez/IV: Voiding Method Toilet Active Medications - Current Medications Current Medications: Generic Name Dose Route Start Last Admin Trade Name Freq PRN Reason Stop Dose Admin Acetaminophen 650 mg 04/10/21 10:00 Acetaminophen 325 Mg Tab PO Q4H PRN Pain MILD(1-3)/Fever >100.5/BYNUM Aspirin 81 mg 04/10/21 10:00 04/10/21 10:07 Aspirin 81 Mg Tab Chew PO 81 mg QDAY JOELLE Administration Clopidogrel Bisulfate 75 mg 04/10/21 18:00 04/10/21 21:37 Clopidogrel 75 Mg Tab PO 75 mg QPM JOELLE Administration Dextrose 50 ml 04/10/21 10:00 Dextrose 50% In Water (25gm) 50 Ml Syringe IV Q30MIN PRN Hypoglycemia Protocol Docusate Sodium 200 mg 04/10/21 11:00 Docusate Sodium 100 Mg Cap PO BID PRN Constipation Heparin Sodium (Porcine) 5,000 unit 04/10/21 13:00 04/10/21 15:58 Heparin 10,000 Units/10 Ml Vial IV 5,000 unit Q6H PRN Administration Anti-Xa Assay < 0.1 units/ml Heparin Sodium/Sodium Chloride 25,000 unit in 500 mls @ 30 mls/hr 04/10/21 10:00 04/11/21 01:16 Heparin/ 0.45% Nacl-25,000 Unit/500 Ml IV 04/13/21 04:30 1,650 units/hr TITR JOELLE 33 mls/hr Titration Protocol 1,500 UNITS/HR Insulin Human Isoph/Insulin Regular 60 unit 04/10/21 12:00 04/10/21 18:23 Insulin Nph/Regular 70/30 Inj SUB-Q 60 unit 0800,1200,1700 JOELLE Administration Insulin Human Regular 0 units 04/10/21 11:30 04/10/21 22:14 Insulin Regular, Human 100 Units/1 Ml SUB-Q 2 units ACHS JOELLE Administration Protocol Lisinopril 20 mg 04/11/21 10:00 Lisinopril 20 Mg Tab PO QDAY JOELLE Metoprolol Tartrate 100 mg 04/11/21 10:00 Metoprolol Tartrate 100 Mg Tab PO BID JOELLE Morphine Sulfate 1 mg 04/10/21 10:00 04/11/21 04:04 Morphine 4 Mg/1 Ml Inj IV 1 mg Q4H PRN Administration Chest Pain unrelieved by NTG Ondansetron HCl 4 mg 04/10/21 10:00 04/10/21 16:36 Ondansetron 4 Mg/2 Ml Inj IV 4 mg Q8H PRN Administration Nausea And Vomiting Pantoprazole Sodium 40 mg 04/10/21 11:00 04/10/21 13:11 Pantoprazole 40 Mg Tab PO 40 mg QDAC JOELLE Administration Sodium Chloride 10 ml 04/10/21 10:00 Sodium Chloride 0.9% 10 Ml Flush Syringe IV PRN PRN LINE FLUSH Sodium Chloride 10 ml 04/10/21 10:00 04/10/21 22:17 Sodium Chloride 0.9% 10 Ml Flush Syringe IV 10 ml BID JOELLE Administration Sodium Chloride 10 ml 04/10/21 10:00 Sodium Chloride 0.9% 10 Ml Flush Syringe IV PRN PRN LINE FLUSH Tramadol HCl 50 mg 04/10/21 10:00 04/10/21 16:37 Tramadol 50 Mg Tab PO 50 mg Q6H PRN Administration Pain, Moderate (4-6)
[2021-04-11] MEDS ORDERED: LISINOPRIL 20 MG TAB PO SCH (10:00)
[2021-04-11] MEDS: ASPIRIN 81 MG TAB CHEW PO SCH (10:00)
[2021-04-11] MEDS: HEPARIN/ 0.45% NACL DRIP 25,000 UNIT/500 ML BAG IV SCH ×2 (10:04→22:12)
[2021-04-11] MEDS: INSULIN REGULAR, HUMAN 100 UNITS/1 ML SUB-Q SCH ×4 (10:10→22:09)
--- NOTE | 2021-04-11 11:04 | Progress Note ---
Assessment and Plan 65-year-old man with morbid obesity difficulty with walking with left knee injury. Has known coronary arterial disease small vessel. Presents to the hospital with chest pain with non-ST elevation ID patient is on IV heparin blood pressure needs better control increase metoprolol to 100 mg twice a day increase lisinopril 20 mg once a day continue aspirin Plavix statin anticipated cardiac cath on Tuesday - Patient Problems (1) Acute diastolic (congestive) heart failure Current Visit: Yes Status: Acute (2) Hypertension Current Visit: Yes Status: Chronic Qualifiers: Hypertension type: primary hypertension Qualified Code(s): I10 - Essential (primary) hypertension (3) Hyperlipemia, mixed Current Visit: Yes Status: Chronic (4) Morbid obesity Current Visit: Yes Status: Chronic (5) CAD (coronary artery disease) Current Visit: Yes Status: Chronic Qualifiers: [place] vs. transplanted heart: [place] heart Associated angina: with unstable angina (6) NSTEMI (non-ST elevated myocardial infarction) Current Visit: Yes Status: Acute Subjective Date of service: 04/11/21 Principal diagnosis: nstemi Interval history: pt is currently chest pain free Objective Vital Signs Temp Pulse Resp BP BP Pulse Ox 04/11/21 09:56 85 179/67 04/11/21 08:43 95 04/11/21 05:02 97.7 F 85 20 179/67 96 04/11/21 00:13 82 04/10/21 23:40 97 04/10/21 23:05 98.6 F 82 20 163/72 92 04/10/21 22:51 169/75 95 04/10/21 22:15 87 16 169/75 04/10/21 22:14 85 169/75 04/10/21 22:00 84 12 169/75 94 04/10/21 21:46 75 15 136/57 04/10/21 21:30 76 14 136/57 04/10/21 21:16 77 12 136/57 04/10/21 21:06 18 04/10/21 21:00 77 16 136/57 04/10/21 20:46 78 19 161/69 04/10/21 20:30 78 16 161/69 04/10/21 20:16 78 16 161/69 04/10/21 20:00 77 18 161/69 93 04/10/21 19:50 98.2 F 83 16 161/69 95 04/10/21 19:46 73 15 159/65 04/10/21 19:30 74 17 159/65 04/10/21 19:16 80 19 159/65 93 04/10/21 19:00 76 18 159/65 04/10/21 18:46 75 17 139/56 92 04/10/21 18:30 77 17 139/56 92 04/10/21 18:00 77 17 139/56 94 04/10/21 17:37 18 04/10/21 17:30 74 18 159/57 92 04/10/21 17:06 18 04/10/21 17:00 72 17 159/57 93 04/10/21 16:30 81 24 158/47 92 04/10/21 16:00 72 19 158/47 94 04/10/21 15:00 72 14 137/55 95 04/10/21 14:50 70 18 137/55 93 04/10/21 14:40 70 16 167/62 93 04/10/21 14:30 71 15 167/62 94 04/10/21 14:20 73 15 167/62 94 04/10/21 14:10 97 H 16 169/73 95 04/10/21 14:00 75 17 156/65 94 04/10/21 13:50 80 19 156/65 94 04/10/21 13:42 83 14 169/73 97 04/10/21 13:11 88 170/74 04/10/21 12:03 145/61 04/10/21 12:01 155/63 04/10/21 11:59 151/65 04/10/21 11:57 152/60 04/10/21 11:55 157/62 04/10/21 11:53 149/61 04/10/21 11:51 158/64 04/10/21 11:49 153/62 04/10/21 11:34 148/65 - Physical Examination General: No Apparent Distress HEENT: Positive: PERRL Neck: Positive: trachea midline Cardiac: Positive: Reg Rate and Rhythm Lungs: Positive: clear to auscultation Neuro: Positive: Grossly Intact Abdomen: Positive: Soft, Active Bowel Sounds Skin: Negative: Rash, Suspicious Lesions, Ulceration Extremities: Present: upper extr. pulses, lower extr. pulses. Absent: edema - Labs and Meds Coagulation 04/10/21 Range/Units 10:11 PT 14.0 (12.2-14.9) Sec. INR 1.03 (0.87-1.13) APTT 22.6 L (24.2-36.6) Sec. Lipids 04/10/21 Range/Units 10:11 Triglycerides 75 (2-149) mg/dL Cholesterol 164 (50-199) mg/dL HDL Cholesterol 64 H (40-59) mg/dL Cholesterol/HDL Ratio 2.56 % CBC 04/10/21 Range/Units 10:11 WBC 3.8 L (4.5-11.0) K/mm3 RBC 4.75 (3.65-5.03) M/mm3 Hgb 10.9 L (11.8-15.2) gm/dl Hct 34.3 L (35.5-45.6) % Plt Count 151 (140-440) K/mm3 Lymph # (Auto) 0.7 L (1.2-5.4) K/mm3 Comprehensive Metabolic Panel 04/10/21 Range/Units 10:11 Sodium 132 L (137-145) mmol/L Potassium 5.5 H D (3.6-5.0) mmol/L Chloride 98.4 (98-107) mmol/L Carbon Dioxide 24 (22-30) mmol/L BUN 10 (9-20) mg/dL Creatinine 0.6 L (0.8-1.3) mg/dL Glucose 255 H (75-100) mg/dL Calcium 8.9 (8.4-10.2) mg/dL - Imaging and Cardiology EKG: report reviewed Echo: report reviewed Cardiac cath: report reviewed - Telemetry EKG Rhythm: Sinus Rhythm - EKG Sinus rhythms and dysrhythmias: sinus tachycardia AV and intraventricular conduction: right bundle branch block
[2021-04-11] MEDS: METOPROLOL TARTRATE 100 MG TAB PO SCH ×2 (13:53→22:10)
[2021-04-11] MEDS: INSULIN NPH/REGULAR 70/30 INJ SUB-Q SCH ×2 (14:12→17:04)
[2021-04-11] MEDS: CLOPIDOGREL 75 MG TAB PO SCH (17:04)
[2021-04-11 20:00] VITALS: BP 128/46
--- NOTE | 2021-04-12 09:42 | Discharge Summary ---
Providers - Providers Date of Admission: 04/10/21 08:48 Date of discharge: 04/11/21 Attending physician: REN SNOW 04/10/21 Consult to Cardiac Rehabilitation [CONS] Routine Reason For Exam: Phase I 04/10/21 08:49 Consult to Cardiology [CONS] Routine Consulting Provider: GABRIELA ONEIL Reason For Exam: CP, new afib 04/10/21 13:14 Consult to Physician [CONS] Routine Comment: Consulting Provider: GABRIELA ONEIL Physician Instructions: Reason For Exam: chest pain Hospitalization Reason for admission: CP Condition: Critical Hospital course: 65-year-old male with significant past medical history of GERD, CAD s/p PCI x3, diabetes mellitus type 2 and hypertension presented through the emergency room with complaints of chest pain that began approximately 1 hour prior to admission. Per documentation in the emergency department patient was noted to have SVT that was converted to normal sinus rhythm with Cardizem drip. The patient was noted to have elevated troponins on admission. The patient was admitted with diagnosis of chest pain, NSTEMI and SVT/atrial fibrillation with RVR. The patient was treated with heparin drip and metoprolol 50 mg twice daily. Cardiology saw the patient in consultation and increase the metoprolol to 100 and stopped the Cardizem drip. Cardiology plan to perform cardiac cat heterization on Tuesday. However, patient was a [facility] patient and opted to be transferred to [facility]. Patient was transferred to [facility] on heparin drip and is to follow-up with a box coverer hand at their facility. Dedicated discharge time 32 minutes Disposition: 30 STILL A PATIENT Final Discharge Diagnosis (Prints w/discharge instructions): Atrial fibrillation with RVR, NSTEMI, diabetes mellitus type 2, hypertension Core Measure Documentation - Palliative Care Palliative Care/ Comfort Measures: Not Applicable - Core Measures Any of the following diagnoses?: acute OK - Acute OK Discharge Requirements Aspirin at discharge: Yes SHERYL/ARB for LVSD if EF <40%: Yes Beta rayna at discharge: Yes Statin for LDL = or >100 mg/dl on DC: Yes Exam - Constitutional Vitals: Temp Pulse Resp BP Pulse Ox 98.4 F 77 18 128/46 95 04/11/21 19:26 04/11/21 22:10 04/11/21 19:26 04/11/21 22:10 04/11/21 19:26 General appearance: Present: no acute distress, well-nourished - EENT Eyes: Present: PERRL ENT: hearing intact, clear oral mucosa - Neck Neck: Present: supple, normal ROM - Respiratory Respiratory effort: normal Respiratory: bilateral: CTA - Cardiovascular Heart Sounds: Present: S1 & S2. Absent: rub, click - Extremities Extremities: pulses symmetrical, No edema Peripheral Pulses: within normal limits - Abdominal General gastrointestinal: Present: soft, non-tender, non-distended, normal bowel sounds Male genitourinary: Present: normal - Integumentary Integumentary: Present: clear, warm, dry - Musculoskeletal Musculoskeletal: gait normal, strength equal bilaterally - Psychiatric Psychiatric: appropriate mood/affect, intact judgment & insight - Neurologic Neurologic: CNII-XII intact, moves all extremities Plan Activity: advance as tolerated Weight Bearing Status: Weight Bear as Tolerated Diet: low fat, low cholesterol, low salt Follow up with: ZEFERINO NGUYEN [Other] - 7 Days
--- NOTE | 2021-04-13 13:07 | Vascular Lab Report ---
DUPLEX DOPPLER LOWER EXTREMITY VEINS, LEFT INDICATION: r/o dvt. TECHNIQUE: Duplex doppler imaging was performed through the veins of the left lower extremity using venous compr ession and other maneuvers. COMPARISON: No relevant prior imaging study available. FINDINGS: Left Common femoral vein: Negative. Left Superficial femoral vein: Negative. Left Popliteal vein: Negative. Left Calf veins: Negative. Additional findings: None.. IMPRESSION: 1. No sonographic evidence for DVT in the left lower extremity. Signer Name: Mike Noguera MD Signed: 04/13/2021 1:03 PM Workstation Name: [id number]
--- NOTE | 2021-04-13 14:44 | Electrocardiograph Report ---
[facility] Test Date: 2021-04-10 Test Time: 04:01:13 Pat Name: KOREY FOSTER Department: Room: A468 Gender: M Program Planner: : 1955 Requested By: REN SNOW Order Number: [id number] Reading MD: Baldomero Keller Measurements Intervals [place] Rate: 120 P: 47 MD: 147 QRS: -74 QRSD: 134 T: 65 QT: 341 QTc: 480 Interpretive Statements Sinus tachycardia RBBB and LAFB ST depression, consider lateral ischemia No previous ECG available for comparison Electronically Signed On 04-13-2021 14:44:37 EDT by Baldomero Keller
--- NOTE | 2021-04-14 11:03 | Electrocardiograph Report ---
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
== END 2021-04-11 22:15 | disposition short-term general hospital (02) | DRG 280 ==
LOC: ED 03:52 → 4A 08:48
PROVIDERS: ADMIT Hospitalist; ATTEND Hospitalist
DX: I21.4 Non-ST elevation (NSTEMI) myocardial infarction (principal); I50.31 Acute diastolic (congestive) heart failure; Z68.42 Body mass index [BMI] 45.0-49.9, adult; I48.91 Unspecified atrial fibrillation; Z79.82 Long term (current) use of aspirin; Z79.899 Other long term (current) drug therapy; Z79.4 Long term (current) use of insulin; J44.9 Chronic obstructive pulmonary disease, unspecified; Z90.49 Acquired absence of other specified parts of digestive tract; K21.9 Gastro-esophageal reflux disease without esophagitis; I25.10 Atherosclerotic heart disease of native coronary artery without angina pectoris; E66.01 Morbid (severe) obesity due to excess calories; E78.2 Mixed hyperlipidemia; I11.0 Hypertensive heart disease with heart failure
CPT/HCPCS: 36415; 71045; 78452; 80048; 80053; 80061; 82962; 84484; 85025; 85379; 85520; 85610; 85730; 93005; 93017; 93306; G0378; A9502; J0360; J1644; J1815; J2270; J2405; J2785